=== PATIENT | male | born 1985 | race Caucasian/White ===

== ENCOUNTER 2020-10-15 11:25 | Emergency (ER) | payer OTHER ==
[~2020-10-15] VITALS: Ht 172.7 cm; Wt 68.2 kg
[2020-10-15 11:41] VITALS: BP 121/80
== END 2020-10-15 13:17 ==
LOC: EMS 11:25
DX: F32.9 Major depressive disorder, single episode, unspecified (principal)
CPT/HCPCS: 99284; Z7502